=== PATIENT | female | born 1965 | race American Indian/Alaskan Native ===

== ENCOUNTER 2016-04-04 10:36 | Emergency (ER) | payer SELFPAY ==
--- NOTE | 2016-04-04 16:23 | XRay Report ---
ROUTINE CHEST, TWO VIEWS: PA and lateral views demonstrate the heart and mediastinal contour to be of normal size and shape. The lungs are clear and fully expanded and the soft tissues and bony structures are normal. No significant change compared to September 15, 2013. IMPRESSION: Normal study.
== END 2016-04-04 18:00 | disposition left against medical advice (07) ==
LOC: ED 10:36
DX: R07.9 Chest pain, unspecified (principal); Z53.21 Procedure and treatment not carried out due to patient leaving prior to being seen by health care provider
CPT/HCPCS: 71020

== ENCOUNTER 2016-04-05 08:54 | Emergency (ER) | payer BC ==
[2016-04-05 09:11] VITALS: BP 129/77
[2016-04-05 09:51] LABS: Eosinophils % (Auto) 2.3 % (0.0-4.3); Hematocrit 42.4 % (30.3-42.9); Hemoglobin 14.2 gm/dl (10.1-14.3); Mean Corpuscular HGB Conc 34 % (30-34); Mean Corpuscular Hemoglobin 29 pg (28-32); Mean Corpuscular Volume 86 fl (79-97); Platelet Count 290 K/mm3 (140-440); Red Blood Count 4.95 M/mm3 (3.65-5.03); White Blood Count 6.7 K/mm3 (4.5-11.0)
--- NOTE | 2016-04-05 10:05 | Emergency Department Report ---
HPI - General Chief Complaint: Chest Pain Time Seen by Provider: 04/05/16 09:51 - HPI HPI: Chief complaint: Chest pain MODE OF ARRIVAL: Private car SOURCE: Patient and old chart TIMIN days ago LOCATION OF PAIN: Anterior chest and right para thoracic musculature CONTEXT: Patient is a 51-year-old female who used to have a history of diabetes but had barometric surgery, lost weight and no longer has diabetes. Patient had a negative cardiac cath 2014. Patient quit smoking 4 years ago. Patient denies recent travel or surgery. Patient denies swelling or pain to her lower extremities. QUALITY: Sharp SEVERITY: 7 DURATION OF SYMPTOMS: 3 days MODIFYING FACTORS: Worse with deep inspiration and movement of the torso. Increases with palpation. ASSOCIATED SIGNS AND SYMPTOMS: No shortness of breath, fever, nausea, vomiting or diarrhea. Patient denies cough or cold. CARDIAC RISK FACTORS: male no: age no: hypertension no: diabetes no:obesity yes: cocaine no: cholesterol no: family history no: Smoker quit 4 years ago ED Past Medical Hx - Past Medical History Previous Medical History?: Yes Hx Diabetes: Yes - Surgical History Past Surgical History?: Yes Hx Appendectomy: Yes Additional Surgical History: tubal ligation. hysterectomy - Social History Smoking Status: Never Smoker Substance Use Type: None - Medications Home Medications: Home Medications Medication Instructions Recorded Confirmed Last Taken Type metFORMIN [Glucophage] 500 mg PO BID 09/15/13 07/23/14 Unknown History Ondansetron [Zofran Odt] 4 mg PO Q6H PRN #8 tab.rapdis 07/24/14 Unknown Rx Ibuprofen [Motrin 400 MG tab] 400 mg PO Q8H PRN #14 tablet 04/05/16 Unknown Rx traMADol [Ultram 50 MG tab] 50 mg PO Q6HR PRN #20 tablet 04/05/16 Unknown Rx ED Review of Systems ROS: Stated complaint: CHEST PAIN Other details as noted in HPI ROS Constitutional: No fever ENT: No uri symptoms Cardiovascular: chest pain Respiratory: No sob or cough GI: No nausea vomiting or diarrhea : No dysuria frequency or urgency, Skin: No rash Neuro: No focal weakness or numbness Psych: No depression Femi/lymph: No edema Physical Exam - Physical Exam Vital Signs: Vital Signs 04/05/16 09:07 Temperature 98.4 F Pulse Rate 58 L Blood Pressure 129/77 O2 Sat by Pulse 99 Oximetry Physical Exam: GENERAL: The patient is well-developed well-nourished . HEENT: Normocephalic. Atraumatic. Extraocular motions are intact. Patient has moist mucous membranes. NECK: Supple. No meningitic signs are noted. There is no adenopathy noted. CHEST/LUNGS: Clear to auscultation. There is no respiratory distress noted. Tender right anterior chest wall reproduces pain. Tender right parathoracic musculature reproduces back pain. HEART/CARDIOVASCULAR: Regular. There is no tachycardia. There is no gallop rub or murmur. ABDOMEN: Abdomen is soft, nontender. Patient has normal bowel sounds. There is no abdominal distention. SKIN: There is no rash. There is no edema. There is no diaphoresis. NEURO: The patient is awake, alert, and oriented. The patient is cooperative. The patient has no focal neurologic deficits. The patient has normal speech. MUSCULOSKELETAL: There is no tenderness or deformity. There is no limitation range of motion. There is no evidence of acute injury. ED Course Vital Signs 04/05/16 09:07 Temperature 98.4 F Pulse Rate 58 L Blood Pressure 129/77 O2 Sat by Pulse 99 Oximetry - Reevaluation(s) Reevaluation #1: 04/05/16 10:09 Patient given 400 mg by mouth ibuprofen ED Medical Decision Making - Lab Data Result diagrams: 04/05/16 09:33 04/05/16 09:32 Laboratory Tests 04/05/16 09:32 Troponin T < 0.010 - EKG Data -: EKG Interpreted by Ma EKG shows normal: sinus rhythm Rate: normal - EKG Data When compared to previous EKG there are: no significant change Interpretation: nonspecific ST-T wave nelia - Radiology Data Radiology results: report reviewed (chest x-ray done yesterday was normal) Critical care attestation.: If time is entered above; I have spent that time in minutes in the direct care of this critically ill patient, excluding procedure time. ED Disposition Clinical Impression: Atypical chest pain Disposition: DISCHARGED TO HOME OR SELFCARE Is pt being admited?: No Does the pt Need Aspirin: No Condition: Stable Instructions: Chest Pain (ED) Prescriptions: Ibuprofen [Motrin 400 MG tab] 400 mg PO Q8H PRN #14 tablet PRN Reason: Pain traMADol [Ultram 50 MG tab] 50 mg PO Q6HR PRN #20 tablet PRN Reason: Pain Referrals: BILL CASTANO MD [Primary Care Provider] - 3-5 Days Time of Disposition: 10:14
[2016-04-05 10:06] LABS: Anion Gap 18 mmol/L; Blood Urea Nitrogen 8 mg/dL (7-17); Calcium 9.4 mg/dL (8.4-10.2); Carbon Dioxide 27 mmol/L (22-30); Glucose 82 mg/dL (65-100); Potassium 4.3 mmol/L (3.6-5.0); Sodium 140 mmol/L (137-145)
[2016-04-05] MEDS ORDERED: MOTRIN PO ONE (10:09)
== END 2016-04-05 10:45 | disposition home or self-care (01) ==
LOC: ED 08:54
DX: R07.89 Other chest pain (principal); E11.9 Type 2 diabetes mellitus without complications; Z98.51 Tubal ligation status
CPT/HCPCS: 36415; 80048; 84484; 85025; 93005; 93010

== ENCOUNTER 2016-12-29 07:37 | Emergency (ER) | payer BC ==
[2016-12-29 08:39] LABS: Bilirubin,Urine NEG (Negative); Blood,Urine NEG (Negative); Ketones,Urine NEG (Negative); Leukocyte Esterase,Urine SM (Negative); Mucus,Urine FEW /HPF; Nitrite,Urine NEG (Negative); Protein,Urine <15 mg/dL mg/dL (Negative); RBC,Urine < 1.0 /HPF (0.0-6.0); Urobilinogen,Urine < 2.0 mg/dL (<2.0)
[2016-12-29] MEDS ORDERED: TORADOL IM ONE (09:51)
--- NOTE | 2016-12-29 09:51 | Emergency Department Report ---
ED Back Pain/Injury HPI - General Chief Complaint: Urogenital-Female Stated Complaint: FREQUENT URINATION Time Seen by Provider: 12/29/16 09:24 Source: patient Limitations: No Limitations - History of Present Illness Initial Comments: Pt reports lower back pain and frequent urination, no burning, no vaginal d/c. No fevers, abdominal pain, n/v. Hx of UTI and reports this feels similar. MD Complaint: back pain Onset/Timin -: days(s) Similar Symptoms Previously: Yes Place: home Radiation: none Severity: moderate Quality: aching Consistency: constant Improves With: none Worsens With: none Associated Symptoms: denies other symptoms - Related Data Home Medications Medication Instructions Recorded Confirmed Last Taken metFORMIN [Glucophage] 500 mg PO BID 09/15/13 07/23/14 Unknown Previous Rx's Medication Instructions Recorded Last Taken Type Ondansetron [Zofran Odt] 4 mg PO Q6H PRN #8 tab.rapdis 07/24/14 Unknown Rx Ibuprofen [Motrin 400 MG tab] 400 mg PO Q8H PRN #14 tablet 04/05/16 Unknown Rx traMADol [Ultram 50 MG tab] 50 mg PO Q6HR PRN #20 tablet 04/05/16 Unknown Rx Ciprofloxacin HCl [Cipro] 500 mg PO BID #14 tablet 12/29/16 Unknown Rx Fluconazole [Diflucan] 150 mg PO ONCE #1 tablet 12/29/16 Unknown Rx Ibuprofen [Motrin] 800 mg PO Q8HR PRN #15 tablet 12/29/16 Unknown Rx Allergies Allergy/AdvReac Type Severity Reaction Status Date / Time No Known Allergies Allergy Verified 07/07/13 18:34 ED Review of Systems ROS: Stated complaint: FREQUENT URINATION Other details as noted in HPI Comment: All other systems reviewed and negative Constitutional: denies: chills, fever Eyes: denies: eye pain, eye discharge, vision change ENT: denies: ear pain, throat pain Respiratory: denies: cough, shortness of breath, wheezing Cardiovascular: denies: chest pain, palpitations Endocrine: no symptoms reported Gastrointestinal: denies: abdominal pain, nausea, diarrhea Genitourinary: frequency. denies: urgency, dysuria, discharge Musculoskeletal: back pain. denies: joint swelling, arthralgia Skin: denies: rash, lesions Neurological: denies: headache, weakness, paresthesias Psychiatric: denies: anxiety, depression Hematological/Lymphatic: denies: easy bleeding, easy bruising ED Past Medical Hx - Past Medical History Hx Diabetes: Yes - Surgical History Hx Appendectomy: Yes Additional Surgical History: tubal ligation. hysterectomy - Social History Smoking Status: Former Smoker Substance Use Type: None - Medications Home Medications: Home Medications Medication Instructions Recorded Confirmed Last Taken Type metFORMIN [Glucophage] 500 mg PO BID 09/15/13 07/23/14 Unknown History Ondansetron [Zofran Odt] 4 mg PO Q6H PRN #8 tab.rapdis 07/24/14 Unknown Rx Ibuprofen [Motrin 400 MG tab] 400 mg PO Q8H PRN #14 tablet 04/05/16 Unknown Rx traMADol [Ultram 50 MG tab] 50 mg PO Q6HR PRN #20 tablet 04/05/16 Unknown Rx Ciprofloxacin HCl [Cipro] 500 mg PO BID #14 tablet 12/29/16 Unknown Rx Fluconazole [Diflucan] 150 mg PO ONCE #1 tablet 12/29/16 Unknown Rx Ibuprofen [Motrin] 800 mg PO Q8HR PRN #15 tablet 12/29/16 Unknown Rx ED Physical Exam - General Limitations: No Limitations General appearance: alert, in no apparent distress - Head Head exam: Present: atraumatic, normocephalic - Eye Eye exam: Present: normal appearance - ENT ENT exam: Present: mucous membranes moist - Neck Neck exam: Present: normal inspection - Respiratory Respiratory exam: Present: normal lung sounds bilaterally. Absent: respiratory distress - Cardiovascular Cardiovascular Exam: Present: regular rate, normal rhythm. Absent: systolic murmur, diastolic murmur, rubs, gallop - GI/Abdominal GI/Abdominal exam: Present: soft, normal bowel sounds. Absent: tenderness, guarding, rebound - Extremities Exam Extremities exam: Present: normal inspection, full ROM - Back Exam Back exam: Present: normal inspection, full ROM. Absent: CVA tenderness (R), CVA tenderness (L) - Neurological Exam Neurological exam: Present: alert, oriented X3 - Psychiatric Psychiatric exam: Present: normal affect, normal mood - Skin Skin exam: Present: warm, dry, intact, normal color. Absent: rash ED Course Vital Signs 12/29/16 07:55 Temperature 98.8 F Pulse Rate 65 Respiratory 20 Rate Blood Pressure 127/61 O2 Sat by Pulse 97 Oximetry - Reevaluation(s) Reevaluation #1: 12/29/16 11:12 Pt is in NAD and stable for d/c. ED Medical Decision Making - Lab Data Result diagrams: 12/29/16 09:46 12/29/16 09:46 Small leukocyte esterase in UA - Medical Decision Making Pt with UTI sx, small leukocytes. Will start abx and have her follow up with PCP this week. - Differential Diagnosis UTI, urethritis, stone unlikely Critical care attestation.: If time is entered above; I have spent that time in minutes in the direct care of this critically ill patient, excluding procedure time. ED Disposition Clinical Impression: UTI (urinary tract infection) Qualifiers: Urinary tract infection type: site unspecified Hematuria presence: without hematuria Qualified Code(s): N39.0 - Urinary tract infection, site not specified Disposition: DC- TO HOME OR SELFCARE Is pt being admited?: No Condition: Good Instructions: Urinary Tract Infection in Women (ED) Prescriptions: Ciprofloxacin HCl [Cipro] 500 mg PO BID #14 tablet Fluconazole [Diflucan] 150 mg PO ONCE #1 tablet Ibuprofen [Motrin] 800 mg PO Q8HR PRN #15 tablet PRN Reason: Pain Referrals: PRIMARY CARE, [Primary Care Provider] - 3-5 Days Time of Disposition: 11:15
[2016-12-29 10:03] LABS: Basophils % (Auto) 0.8 % (0.0-1.8); Eosinophils % (Auto) 2.8 % (0.0-4.3); Hematocrit 41.7 % (30.3-42.9); Hemoglobin 14.6 gm/dl (10.1-14.3); Mean Corpuscular HGB Conc 35 % (30-34); Mean Corpuscular Hemoglobin 30 pg (28-32); Mean Corpuscular Volume 85 fl (79-97); Platelet Count 273 K/mm3 (140-440); Red Blood Count 4.89 M/mm3 (3.65-5.03); Red Cell Distribution Width 13.7 % (13.2-15.2); White Blood Count 6.2 K/mm3 (4.5-11.0)
[2016-12-29 10:18] LABS: Anion Gap 15 mmol/L; BUN/Creatinine Ratio 18; Blood Urea Nitrogen 7 mg/dL (7-17); Calcium 9.3 mg/dL (8.4-10.2); Carbon Dioxide 28 mmol/L (22-30); Chloride 104.2 mmol/L (98-107); Glucose 86 mg/dL (65-100); Potassium 4.4 mmol/L (3.6-5.0); Sodium 143 mmol/L (137-145)
[2016-12-29 11:22] VITALS: BP 118/68
== END 2016-12-29 11:21 | disposition home or self-care (01) ==
LOC: ED 07:37
DX: N39.0 Urinary tract infection, site not specified (principal); E11.9 Type 2 diabetes mellitus without complications; Z87.891 Personal history of nicotine dependence
CPT/HCPCS: 36415; 80048; 81001; 81025; 85025; 96372; 99283; J1885

== ENCOUNTER 2017-12-23 07:45 | Emergency (ER) | payer BC, OTHER ==
[2017-12-23 08:09] VITALS: BP 159/75
--- NOTE | 2017-12-23 09:38 | Emergency Department Report ---
HPI - General Chief Complaint: Allergic Reaction Time Seen by Provider: 12/23/17 09:27 - HPI HPI: Ms. Begum is a 52-year-old female with history of prediabetes, over the last several weeks she's had throat tightening, itchiness. Intermittent swelling of the face. No new exposures. She had similar reaction 8 years ago. She was seen in the ED several years ago required a shot for throat swelling. Sensation of the throat closing up. She was recently seen outside hospita for these symptoms. Prescribedg methylprednisolone and Benadryl. Swelling itching has improved. Now she has mild rash of the right forearm with itching. Arm feels tight. Denies current shortness of breath. Denies current lip or throat swelling. No chest pain. No abdominal pain. ED Past Medical Hx - Past Medical History Previous Medical History?: No Hx Diabetes: Yes - Surgical History Hx Appendectomy: Yes Additional Surgical History: tubal ligation. hysterectomy. wt loss surgery - Social History Smoking Status: Never Smoker Substance Use Type: None Other Social History: works at a [employer] for [employer] - Medications Home Medications: Home Medications Medication Instructions Recorded Confirmed Last Taken Type metFORMIN [Glucophage] 500 mg PO BID 09/15/13 07/23/14 Unknown History Ondansetron [Zofran Odt] 4 mg PO Q6H PRN #8 tab.rapdis 07/24/14 Unknown Rx Ibuprofen [Motrin 400 MG tab] 400 mg PO Q8H PRN #14 tablet 04/05/16 Unknown Rx traMADol [Ultram 50 MG tab] 50 mg PO Q6HR PRN #20 tablet 04/05/16 Unknown Rx Ciprofloxacin HCl [Cipro] 500 mg PO BID #14 tablet 12/29/16 Unknown Rx Fluconazole [Diflucan] 150 mg PO ONCE #1 tablet 12/29/16 Unknown Rx Ibuprofen [Motrin] 800 mg PO Q8HR PRN #15 tablet 12/29/16 Unknown Rx EPINEPHrine [Epipen 2-Nick] 0.3 mg IJ ONCE PRN #1 auto.injct 12/23/17 Unknown Rx Hydrocortisone 1% [Hydrocortisone 1 applicatio TP TID #1 tube 12/23/17 Unknown Rx 1% CREAM] ED Review of Systems ROS: Stated complaint: ALLERGIC REACTION/ARM SWELLING Other details as noted in HPI Comment: All other systems reviewed and negative Constitutional: denies: fever, malaise Respiratory: denies: cough Cardiovascular: denies: chest pain Physical Exam - Physical Exam Vital Signs: Vital Signs 12/23/17 08:07 Temperature 98.4 F Pulse Rate 82 Respiratory 18 Rate Blood Pressure 159/75 O2 Sat by Pulse 99 Oximetry General: General: Well-appearing, no acute distress HEENT: Normocephalic atraumatic pupils equal round and reactive to light anicteric sclera Nose: no rhinorrhea Oropharynx: Clear mucous membranes no lesions Neck: supple, no meningismus Chest: Clear to auscultation bilaterally no rales rhonchi no wheezes Cardiac: Regular rate and rhythm no murmurs no rubs no gallops Abdomen: Soft nontender nondistended positive bowel sounds no guarding Extremities: No cyanosis no clubbing no edema Neuro: Moves all extremities 4, no gross deficits Psychiatric: Alert and oriented 4 normal affect normal judgment normal insight Skin: Right distal forearm for centimeter by 5 cm faint erythema with excoriations ED Course Vital Signs 12/23/17 08:07 Temperature 98.4 F Pulse Rate 82 Respiratory 18 Rate Blood Pressure 159/75 O2 Sat by Pulse 99 Oximetry ED Medical Decision Making - Medical Decision Making Mrs. Begum presents with diffuse itching, intermittent facial swelling with sensation of throat tightening. She currently has contact dermatitis on her right distal forearm. I prescribed EpiPen. She was given education on when and how to use this medication. I strongly encouraged close follow-up with her PCP. I strongly encouraged tool salvage worker evaluation. Also prescribed hydrocortisone She will need tool salvage worker and possible rheumatological evaluation. Differential dataincludes anaphylaxis/allergic reaction versus autoimmune disease versus contact dermatitis, Critical care attestation.: If time is entered above; I have spent that time in minutes in the direct care of this critically ill patient, excluding procedure time. ED Disposition Clinical Impression: Allergic reaction, Contact dermatitis Disposition: - TO HOME OR SELFCARE Is pt being admited?: No Does the pt Need Aspirin: No Condition: Stable Instructions: Contact Dermatitis (ED), Anaphylaxis (ED) Prescriptions: EPINEPHrine [Epipen 2-Nick] 0.3 mg IJ ONCE PRN #1 auto.injct PRN Reason: Allergic Reaction Hydrocortisone 1% [Hydrocortisone 1% CREAM] 1 applicatio TP TID #1 tube
== END 2017-12-23 09:54 | disposition home or self-care (01) ==
LOC: ED 07:45
DX: L23.9 Allergic contact dermatitis, unspecified cause (principal); E11.9 Type 2 diabetes mellitus without complications; Z90.89 Acquired absence of other organs; Z98.51 Tubal ligation status; Z90.710 Acquired absence of both cervix and uterus; Z79.84 Long term (current) use of oral hypoglycemic drugs
CPT/HCPCS: 99281

== ENCOUNTER 2018-05-20 15:42 | Emergency (ER) | payer OTHER ==
--- NOTE | 2018-05-20 15:59 | Emergency Department Report ---
Chief Complaint: Dyspnea/Respdistress Stated Complaint: SOB Time Seen by Provider: 05/20/18 15:57 - HPI History of Present Illness: This is a 53 y.o. female that presents to ER with sensation of throat closing up. Patient states she woke up this morning with symptoms. PMH of HTN. - Exam Vital Signs: Vital Signs 05/20/18 15:58 Temperature 98.6 F Pulse Rate 89 Respiratory 16 Rate Blood Pressure 132/75 O2 Sat by Pulse 98 Oximetry MSE screening note: Focused history and physical exam performed. Due to findings the following was ordered: BMP and CBC Give benadryl and decadron. Fast track for further evaluation. ED Disposition for MSE Condition: Stable
[2018-05-20 16:00] VITALS: BP 132/75
[2018-05-20] MEDS ORDERED: DECADRON IM ONE (16:04)
[2018-05-20] MEDS ORDERED: BANOPHEN PO ONE (16:04)
[2018-05-20] MEDS ORDERED: PEPCID PO ONE (16:43)
[2018-05-20] MEDS ORDERED: DUONEB *Not for PRN Use IH ONE (16:43)
--- NOTE | 2018-05-20 16:44 | Emergency Department Report ---
Minor Respiratory - HPI Chief Complaint: Dyspnea/Respdistress Stated Complaint: SOB Time Seen by Provider: 05/20/18 15:57 Duration: 1 Day Pain Location: Throat Severity: mild Minor Respiratory: Yes Able to Tolerate Fluids, No Rhinorrhea, No Sore Throat, No Ear Pain, No Cough, No Sick Contacts, No Hemoptysis, No Chest Pain, No Shortness of Breath, No Fever Other History: Patient is a 53-year-old -[place] female who comes to the ER complaining that she is having allergic reaction. She states that she has these from time to time but does not know what precipitates them. She carries an EpiPen but did not inject herself because she had to drive to the emergency room. On arrival vital signs are stable's out was 98% on room air. She is ambulatory without shortness of breath or chest pain. There is no stridor. No rash. Home medications. When necessary at the. Drug allergies penicillin. Other allergies include environmental allergies ED Review of Systems ROS: Stated complaint: SOB Other details as noted in HPI Comment: All other systems reviewed and negative Constitutional: denies: chills, fever Eyes: denies: eye pain ENT: as per HPI. denies: ear pain, throat pain Respiratory: see HPI. denies: orthopnea Cardiovascular: denies: dyspnea on exertion Endocrine: denies: flushing Gastrointestinal: denies: nausea Genitourinary: denies: urgency Musculoskeletal: denies: back pain Skin: denies: rash Neurological: denies: headache Psychiatric: denies: anxiety ED Past Medical Hx - Past Medical History Previous Medical History?: Yes Hx Diabetes: Yes ("I no longer have this".) Additional medical history: "anaphylaxis" - Surgical History Past Surgical History?: Yes Hx Appendectomy: Yes Additional Surgical History: tubal ligation. hysterectomy. wt loss surgery - Family History Family history: no significant - Social History Smoking Status: Never Smoker Substance Use Type: None - Medications Home Medications: Home Medications Medication Instructions Recorded Confirmed Last Taken Type EPINEPHrine [Epipen 2-Nick] 0.3 mg IJ ONCE PRN #1 auto.injct 12/23/17 01/09/18 Unknown Rx Famotidine [Pepcid] 20 mg PO BID #5 tablet 05/20/18 Unknown Rx diphenhydrAMINE [Benadryl CAP] 25 mg PO Q6HR PRN #12 capsule 05/20/18 Unknown Rx predniSONE [Deltasone] 20 mg PO DAILY #5 tablet 05/20/18 Unknown Rx Minor Respiratory Exam - Exam General: Vital signs noted. No distress. Alert and acting appropriately. HEENT: Yes Moist Mucous Membranes, No Pharyngeal Erythema, No Pharyngeal Exudates, No Rhinorrhea, No Conjuctival Injection, No Frontal Tenderness, No Maxillary Tenderness Ear: Neither TM Bulge, Neither TM Erythema, Neither EAC Pain, Neither EAC Discharge Neck: Yes Supple, No Adenopathy Lungs: Yes Good Air Exchange, No Wheezes, No Ronchi, No Stridor, No Cough, No Labored Respirations, No Retractions, No Use of Accessory Muscles, No Other Abnormal Lung Sounds Heart: Yes Regular, No Murmur Abdomen: Yes Normal Bowel Sounds, No Tenderness, No Peritoneal Signs Skin: No Rash, No Edema Neurologic: Alert and oriented, no deficits. Musculoskeletal: Unremarkable. ED Course Vital Signs 05/20/18 15:58 Temperature 98.6 F Pulse Rate 89 Respiratory 16 Rate Blood Pressure 132/75 O2 Sat by Pulse 98 Oximetry ED Medical Decision Making - Medical Decision Making drove to ER did not use epi pen on arrival sat 90 on room air medicated in ER monitored and then dc home with pcp follow up Vital Signs 05/20/18 05/20/18 05/20/18 15:58 16:56 16:57 Temperature 98.6 F Pulse Rate 89 Pulse Rate [ 89 Bilateral] Respiratory 16 20 Rate Respiratory 20 Rate [Bilateral ] Blood Pressure 132/75 O2 Sat by Pulse 98 97 Oximetry Critical care attestation.: If time is entered above; I have spent that time in minutes in the direct care of this critically ill patient, excluding procedure time. ED Disposition Clinical Impression: Allergic reaction, Diabetes Disposition: DC-01 TO HOME OR SELFCARE Is pt being admited?: No Does the pt Need Aspirin: No Condition: Stable Instructions: Allergies (ED) Additional Instructions: MED ORDERED HYDRATE WELL WITH WATER MOTRIN OR TYLENOL FOR PAIN OR FEVER DIET TOLERATED ACTIVITY TOLERATED FOLLOW UP PCP THIS WEEK REFERRAL BELOW USE EPI PEN INSTRUCTED MONITOR BLOOD SUGAR, IT MAY INC SLIGHTLY WITH MEDS Referrals: [facility] [Outside] - 3-5 Days Time of Disposition: 17:01
[2018-05-20] MEDS ORDERED: BENADRYL PO ONE (16:49)
== END 2018-05-20 17:16 | disposition home or self-care (01) ==
LOC: ED 15:42
DX: T78.40XA Allergy, unspecified, initial encounter (principal); E11.9 Type 2 diabetes mellitus without complications; Z98.51 Tubal ligation status; Z90.710 Acquired absence of both cervix and uterus; Z90.49 Acquired absence of other specified parts of digestive tract; Z88.6 Allergy status to analgesic agent; X58.XXXA Exposure to other specified factors, initial encounter; Y93.89 Activity, other specified; Y92.89 Other specified places as the place of occurrence of the external cause; Y99.8 Other external cause status
CPT/HCPCS: 94640; 96372; 99283; J1100

== ENCOUNTER 2018-06-29 08:29 | Emergency (ER) | payer OTHER ==
[2018-06-29] MEDS ORDERED: NACL 0.9% 1000 ML 1,000 ML IV ONE (08:48)
[2018-06-29] MEDS ORDERED: PEPCID IV ONE (08:49)
[2018-06-29] MEDS ORDERED: BENADRYL IV ONE (08:49)
[2018-06-29] MEDS ORDERED: SOLU-Medrol IV ONE (08:49)
--- NOTE | 2018-06-29 08:55 | Emergency Department Report ---
ED Allergic Reaction HPI - General Chief complaint: Allergic Reaction Stated complaint: ALLERGY ANGIOEDEMA Time Seen by Provider: 06/29/18 08:47 Source: patient Mode of arrival: Ambulatory Limitations: No Limitations - History of Present Illness Initial Comments: Patient is 53 years old female with history of angioedema, unknown cause. Patient presented to the ER with facial swelling and lips swelling. Patient stated the symptoms started at 5 PM today. Patient denied any difficulty breathing or difficulty swallowing. Patient stated that she has been followed by allergy doctor and he is doing just to find out was going on. MD Complaint: allergic reaction, facial swelling -: Sudden, This morning Exposure: unknown Symptoms: facial swelling, lip swelling Severity: moderate Treatment Prior to Arrival: benadryl Previous Allergy History: prior ED visit(s) - Related Data Previous Rx's Medication Instructions Recorded Last Taken Type EPINEPHrine [Epipen 2-Nick] 0.3 mg IJ ONCE PRN #1 auto.injct 12/23/17 Unknown Rx Famotidine [Pepcid] 20 mg PO BID #5 tablet 05/20/18 Unknown Rx diphenhydrAMINE [Benadryl CAP] 25 mg PO Q6HR PRN #12 capsule 05/20/18 Unknown Rx predniSONE [Deltasone] 20 mg PO DAILY #5 tablet 05/20/18 Unknown Rx Famotidine [Pepcid] 40 mg PO QHS #5 tablet 06/29/18 Unknown Rx Prednisone [predniSONE 10 mg 10 mg PO .TAPER #1 tab.ds.pk 06/29/18 Unknown Rx (6-Day Pack, 21 Tabs)] diphenhydrAMINE [Benadryl CAP] 25 mg PO Q8HR PRN #20 capsule 06/29/18 Unknown Rx Allergies Allergy/AdvReac Type Severity Reaction Status Date / Time Penicillins Allergy Anaphylaxis Verified 05/20/18 15:58 ED Review of Systems ROS: Stated complaint: ALLERGY ANGIOEDEMA Other details as noted in HPI Comment: All other systems reviewed and negative Constitutional: denies: chills, fever Respiratory: denies: cough, orthopnea, shortness of breath, SOB with exertion, SOB at rest, wheezing Cardiovascular: denies: chest pain, palpitations Gastrointestinal: denies: abdominal pain Musculoskeletal: denies: back pain ED Past Medical Hx - Past Medical History Previous Medical History?: No Hx Diabetes: Yes ("I no longer have this".) Additional medical history: "anaphylaxis" - Surgical History Past Surgical History?: Yes Hx Appendectomy: Yes Additional Surgical History: tubal ligation. hysterectomy. wt loss surgery - Social History Smoking Status: Never Smoker - Medications Home Medications: Home Medications Medication Instructions Recorded Confirmed Last Taken Type EPINEPHrine [Epipen 2-Nick] 0.3 mg IJ ONCE PRN #1 auto.injct 12/23/17 01/09/18 Unknown Rx Famotidine [Pepcid] 20 mg PO BID #5 tablet 05/20/18 Unknown Rx diphenhydrAMINE [Benadryl CAP] 25 mg PO Q6HR PRN #12 capsule 05/20/18 Unknown Rx predniSONE [Deltasone] 20 mg PO DAILY #5 tablet 05/20/18 Unknown Rx Famotidine [Pepcid] 40 mg PO QHS #5 tablet 06/29/18 Unknown Rx Prednisone [predniSONE 10 mg 10 mg PO .TAPER #1 tab.ds.pk 06/29/18 Unknown Rx (6-Day Pack, 21 Tabs)] diphenhydrAMINE [Benadryl CAP] 25 mg PO Q8HR PRN #20 capsule 06/29/18 Unknown Rx ED Physical Exam - General Limitations: No Limitations General appearance: alert, in no apparent distress, anxious - Head Head exam: Present: atraumatic, normocephalic, normal inspection - Eye Eye exam: Present: normal appearance, PERRL Pupils: Present: normal accommodation - ENT ENT exam: Present: other (left facial swelling, left SIDE upper and lower lip is swollen) - Neck Neck exam: Present: normal inspection, full ROM. Absent: tenderness, meningismus, lymphadenopathy, thyromegaly - Respiratory Respiratory exam: Present: normal lung sounds bilaterally. Absent: respiratory distress, wheezes, rales, rhonchi, chest wall tenderness, accessory muscle use, decreased breath sounds, prolonged expiratory - Cardiovascular Cardiovascular Exam: Present: regular rate, normal rhythm, normal heart sounds - GI/Abdominal GI/Abdominal exam: Present: soft, normal bowel sounds. Absent: distended, tenderness, guarding, rebound, rigid, organomegaly, mass, bruit, pulsatile mass - Extremities Exam Extremities exam: Present: normal inspection, full ROM, normal capillary refill - Back Exam Back exam: Present: normal inspection, full ROM. Absent: CVA tenderness (R), CVA tenderness (L), muscle spasm - Neurological Exam Neurological exam: Present: alert, oriented X3, CN II-XII intact, normal gait, reflexes normal - Skin Skin exam: Present: warm, intact, normal color ED Course Vital Signs 06/29/18 06/29/18 06/29/18 08:35 09:00 10:27 Temperature 99.4 F Pulse Rate 93 H 80 69 Respiratory 18 17 18 Rate Blood Pressure 162/88 Blood Pressure 146/90 142/87 [Right] O2 Sat by Pulse 100 100 100 Oximetry 06/29/18 12:15 Temperature Pulse Rate 89 Respiratory 17 Rate Blood Pressure Blood Pressure 171/81 [Right] O2 Sat by Pulse 99 Oximetry - Reevaluation(s) Reevaluation #1: 06/29/18 11:33 Patient is resting well in no acute distress. She stated that the swelling is coming down. Patient denied any difficulty breathing or difficulty swallowing. No stridor. Lung is clear on both sides. ED Medical Decision Making - Lab Data Result diagrams: 06/29/18 09:06 06/29/18 09:03 - Medical Decision Making Patient is 53 years old female with history of angioedema, unknown cause. Patient presented to the ER with facial swelling and lips swelling. Patient stated the symptoms started at 5 PM today. Patient denied any difficulty breathing or difficulty swallowing. Patient stated that she has been followed by allergy doctor and he is doing just to find out was going on. The patient observed in the ER for approximately 5 hours. Patient remained stable, patient denied any difficulty swallowing, difficulty breathing. No stridor. Lungs clear on both sides. Patient to be discharged home to follow-up with our allergy and immunology doctor in the next 2-3 days. Patient advised to return to the ER if symptoms are not improved. Critical Care Time: Yes Critical care time in (mins) excluding proc time.: 30 Critical care attestation.: If time is entered above; I have spent that time in minutes in the direct care of this critically ill patient, excluding procedure time. ED Disposition Clinical Impression: Angioedema Disposition: DC-01 TO HOME OR SELFCARE Is pt being admited?: No Condition: Stable Instructions: Angioedema (ED) Prescriptions: Famotidine [Pepcid] 40 mg PO QHS #5 tablet diphenhydrAMINE [Benadryl CAP] 25 mg PO Q8HR PRN #20 capsule PRN Reason: Itching Prednisone [predniSONE 10 mg (6-Day Pack, 21 Tabs)] 10 mg PO .TAPER #1 tab.vladislav Referrals: PRIMARY CARE, [Referring] - 3-5 Days Forms: Work/School Release Form(ED)
[2018-06-29 09:22] LABS: Basophils # (Auto) 0.1 K/mm3 (0.0-0.1); Basophils % (Auto) 0.6 % (0.0-1.8); Eosinophils # (Auto) 0.1 K/mm3 (0.0-0.4); Eosinophils % (Auto) 0.9 % (0.0-4.3); Hematocrit 39.2 % (30.3-42.9); Hemoglobin 13.5 gm/dl (10.1-14.3); Lymphocytes # (Auto) 2.4 K/mm3 (1.2-5.4); Lymphocytes % (Auto) 24.7 % (13.4-35.0); Mean Corpuscular HGB Conc 35 % (30-34); Mean Corpuscular Volume 83 fl (79-97); Monocytes # (Auto) 0.7 K/mm3 (0.0-0.8); Monocytes % (Auto) 7.3 % (0.0-7.3); Platelet Count 337 K/mm3 (140-440); Red Blood Count 4.74 M/mm3 (3.65-5.03); Red Cell Distribution Width 14.8 % (13.2-15.2)
[2018-06-29 09:40] LABS: BUN/Creatinine Ratio 12; Blood Urea Nitrogen 7 mg/dL (7-17); Hemolysis Index 9
[2018-06-29 14:26] VITALS: BP 152/69
== END 2018-06-29 14:26 | disposition home or self-care (01) ==
LOC: ED 08:29
DX: T78.3XXA Angioneurotic edema, initial encounter (principal); E11.9 Type 2 diabetes mellitus without complications; Z98.51 Tubal ligation status; Z90.89 Acquired absence of other organs; Z90.710 Acquired absence of both cervix and uterus; Z88.0 Allergy status to penicillin
CPT/HCPCS: 36415; 80048; 85025; 96374; 96375; 99284; J1200; J2930; J7030

== ENCOUNTER 2021-07-23 10:15 | Emergency (ER) | payer BC, OTHER ==
--- NOTE | 2021-07-23 14:38 | Emergency Department Report ---
ED Head Trauma HPI - General Chief complaint: Headache Stated complaint: EYE INJURY Source: patient Mode of arrival: Ambulatory Limitations: No Limitations - History of Present Illness Initial comments: 56-year-old female presents to the ED complaining of a headache and bruising to her right eye . Patient states that she was attempting to pick objects up off of the treadmill when she hit her head and unsure whether she has questionable LOC or not. Patient states kole she awakened this a.m. with a headache rating it a 5 out of 10 and noticed purple discoloration to the right eye. Patient denies any blurry vision,or nausea /vomiting. Patient denies any numbness or tingling. Patient is alert and oriented x3. No acute distress noted. No ill appearance. MD Complaint: head injury Onset/Timin -: days(s) Location: frontal, occipital, face Loss of Consciousness: unsure Previous Trauma to this Area: No Place: home Radiation: none Severity: mild Severity scale (0 -10): 6 - Related Data Previous Rx's Medication Instructions Recorded Last Taken Type EPINEPHrine [Epipen 2-Nick] 0.3 mg IJ ONCE PRN #1 auto.injct 12/23/17 Unknown Rx Famotidine [Pepcid] 20 mg PO BID #5 tablet 05/20/18 Unknown Rx diphenhydrAMINE [Benadryl CAP] 25 mg PO Q6HR PRN #12 capsule 05/20/18 Unknown Rx predniSONE [Deltasone] 20 mg PO DAILY #5 tablet 05/20/18 Unknown Rx Famotidine [Pepcid] 40 mg PO QHS #5 tablet 06/29/18 Unknown Rx Prednisone [predniSONE 10 mg 10 mg PO .TAPER #1 tab.ds.pk 06/29/18 Unknown Rx (6-Day Pack, 21 Tabs)] diphenhydrAMINE [Benadryl CAP] 25 mg PO Q8HR PRN #20 capsule 06/29/18 Unknown Rx Allergies/Adverse reactions: Allergies Allergy/AdvReac Type Severity Reaction Status Date / Time Penicillins Allergy Anaphylaxis Verified 05/20/18 15:58 ED Review of Systems ROS: Stated complaint: EYE INJURY Other details as noted in HPI Constitutional: denies: chills, fever Eyes: denies: eye pain, eye discharge, vision change ENT: denies: ear pain, throat pain Respiratory: denies: cough, shortness of breath, wheezing Cardiovascular: denies: chest pain, palpitations Endocrine: no symptoms reported Gastrointestinal: denies: abdominal pain, nausea, diarrhea Genitourinary: denies: urgency, dysuria, discharge Musculoskeletal: denies: back pain, joint swelling, arthralgia Skin: denies: rash, lesions Neurological: headache. denies: weakness, paresthesias Psychiatric: denies: anxiety, depression Hematological/Lymphatic: denies: easy bleeding, easy bruising ED Past Medical Hx - Past Medical History Previous Medical History?: Yes Hx Diabetes: Yes ("I no longer have this".) Additional medical history: "anaphylaxis" - Surgical History Past Surgical History?: Yes Hx Appendectomy: Yes Additional Surgical History: tubal ligation. hysterectomy. wt loss surgery - Social History Smoking Status: Never Smoker - Medications Home Medications: Home Medications Medication Instructions Recorded Confirmed Last Taken Type EPINEPHrine [Epipen 2-Nick] 0.3 mg IJ ONCE PRN #1 auto.injct 12/23/17 01/09/18 Unknown Rx Famotidine [Pepcid] 20 mg PO BID #5 tablet 05/20/18 Unknown Rx diphenhydrAMINE [Benadryl CAP] 25 mg PO Q6HR PRN #12 capsule 05/20/18 Unknown Rx predniSONE [Deltasone] 20 mg PO DAILY #5 tablet 05/20/18 Unknown Rx Famotidine [Pepcid] 40 mg PO QHS #5 tablet 06/29/18 Unknown Rx Prednisone [predniSONE 10 mg 10 mg PO .TAPER #1 tab.ds.pk 06/29/18 Unknown Rx (6-Day Pack, 21 Tabs)] diphenhydrAMINE [Benadryl CAP] 25 mg PO Q8HR PRN #20 capsule 06/29/18 Unknown Rx ED Physical Exam - General Limitations: No Limitations General appearance: alert, in no apparent distress - Head Head exam: Present: atraumatic, normocephalic - Eye Eye exam: Present: normal appearance - ENT ENT exam: Present: mucous membranes moist - Neck Neck exam: Present: normal inspection - Respiratory Respiratory exam: Present: normal lung sounds bilaterally. Absent: respiratory distress - Cardiovascular Cardiovascular Exam: Present: regular rate, normal rhythm. Absent: systolic murmur, diastolic murmur, rubs, gallop - GI/Abdominal GI/Abdominal exam: Present: soft, normal bowel sounds - Extremities Exam Extremities exam: Present: normal inspection - Back Exam Back exam: Present: normal inspection - Neurological Exam Neurological exam: Present: alert, oriented X3 - Psychiatric Psychiatric exam: Present: normal affect, normal mood - Skin Skin exam: Present: warm, dry, intact, normal color. Absent: rash ED Course Vital Signs 07/23/21 07/23/21 11:14 16:23 Temperature 98 F 98.6 F Pulse Rate 60 89 Respiratory 20 20 Rate Blood Pressure 141/64 132/78 [Right] O2 Sat by Pulse 96 89 Oximetry - Radiology Data [facility] [address] [place] [address] Cat Scan Report Signed Patient: JOY ISU MR#: [id number] : 1965 Acct:[id number] Age/Sex: 56 / F ADM Date: 07/23/21 Loc: ED Attending Dr: Ordering Physician: JAHAIRA PACE Date of Service: 07/23/21 Procedure(s): CT head/brain wo con Accession Number(s): [id number] cc: JAHAIRA PACE CT head/brain wo con INDICATION / CLINICAL INFORMATION: headache after trauma question Loc. TECHNIQUE: Axial CT imaging of the brain was obtained without contrast. Coronal and sagittal reformatted imaging obtained and reviewed. All CT scans at this location are performed using CT dose reduction for ALARA by means of automated exposure control. COMPARISON: Prior head CT 03/16/2011 FINDINGS: No intracranial hemorrhage, mass, or midline shift noted. No extra-axial fluid collection or suggestion of acute territorial infarction. Ventricular system and basilar cisterns are unremarkable. Visualized paranasal sinuses and mastoid air cells are well aerated and clear. No calvarial abnormality or fracture noted. No significant soft tissue abnormality. Both orbits appear to be grossly intact. IMPRESSION: 1. No acute intracranial abnormality. Signer Name: Tawanna Javed MD Signed: 07/23/2021 2:56 PM Workstation Name: [id number] Transcribed By: Dictated By: Tawanna Javed MD Electronically Authenticated By: Tawanna Javed MD Signed Date/Time: 07/23/21 1456 DD/ 1451 TD/TT: - Medical Decision Making 56-year-old female presents to the ED complaining of a headache and bruising to her right eye . Patient states that she was attempting to pick objects up off of the treadmill when she hit her head and unsure whether she has questionable LOC or not. Patient states kole she awakened this a.m. with a headache rating it a 5 out of 10 and noticed purple discoloration to the right eye. Patient denies any blurry vision,or nausea /vomiting. Patient denies any numbness or tingling. Patient is alert and oriented x3. No acute distress noted. No ill appearance. Rechecked the patient is resting quietly quietly and comfortable and feeling better. I discussed the results of diagnostic study, my clinical impression and the plan for further treatment with the patient. Patient agrees with plan and discharge at this present time. All question addressed. I have given the patient instruction regarding a diagnosis ,expectation ,follow- up and return precaution. I explained to the patient that emergent condition may arise and to return to the ED for new worsen and any new persisting condition. I have explained the importance of following up with the primary care physician or referral physician listed below has instructed. The patient verbalized understanding of discharge instruction. Critical care attestation.: If time is entered above; I have spent that time in minutes in the direct care of this critically ill patient, excluding procedure time. ED Disposition Clinical Impression: Headache Qualifiers: Headache type: post-traumatic Headache chronicity pattern: acute headache Intr actability: not intractable Qualified Code(s): G44.319 - Acute post-traumatic headache, not intractable Disposition: 01 HOME / SELF CARE / HOMELESS Is pt being admited?: No Does the pt Need Aspirin: No Condition: Stable Instructions: Concussion, Adult, [id number], Head Injury, Adult, General Headache Without Cause Additional Instructions: Return to Ed for any worsen symptom take over the counter tylenol for headache Referrals: AMARI NICOLAS MD [Staff Physician] - 3-5 Days Forms: Work/School Release Form(ED)
--- NOTE | 2021-07-23 15:00 | Cat Scan Report ---
CT head/brain wo con INDICATION / CLINICAL INFORMATION: headache after trauma question Loc. TECHNIQUE: Axial CT imaging of the brain was obtained without contrast. Coronal and sagittal reformatted imaging obtained and reviewed. All CT scans at this location are performed using CT dose reduction for ALAR A by means of automated exposure control. COMPARISON: Prior head CT 03/16/2011 FINDINGS: No intracranial hemorrhage, mass, or midline shift noted. No extra-axial fluid collection or suggesti on of acute territorial infarction. Ventricular system and basilar cisterns are unremarkable. Visualized paranasal sinuses and mastoid air cells are well aerated and clear. No calvarial abnormali ty or fracture noted. No significant soft tissue abnormality. Both orbits appear to be grossly intact . IMPRESSION: 1. No acute intracranial abnormality. Signer Name: Tawanna Javed MD Signed: 07/23/2021 2:56 PM Workstation Name: [id number]
[2021-07-23 16:24] VITALS: BP 132/78
== END 2021-07-23 16:25 | disposition home or self-care (01) ==
LOC: ED 10:15
DX: R51.9 Headache, unspecified (principal); E11.9 Type 2 diabetes mellitus without complications; Z88.0 Allergy status to penicillin; Z79.899 Other long term (current) drug therapy
CPT/HCPCS: 70450; 99283